=== PATIENT | female | born 1980 | race Two or more races ===

== ENCOUNTER 2022-01-19 13:19 | Outpatient (CLI) | payer BC, SELFPAY ==
[2022-01-19 15:29] LABS: Cholesterol* 252 mg/dL (90-199); HDL Cholesterol* 37 mg/dL (>=50); LDL Cholesterol Calculated 172 mg/dL (<100); Triglycerides* 213 mg/dL (40-149)
[2022-01-19 15:45] LABS: Free T4 Free Thyroxine* 0.96 ng/dL (0.70-1.85)
== END 2022-01-19 13:20 | disposition home or self-care (01) ==
PROVIDERS: Visit Provider Obstetrics & Gynecology
DX: Z01.419 Encounter for gynecological examination (general) (routine) without abnormal findings (principal); E03.9 Hypothyroidism, unspecified; E05.90 Thyrotoxicosis, unspecified without thyrotoxic crisis or storm
CPT/HCPCS: 80061; 84439; 84443

== ENCOUNTER 2022-02-05 14:59 | Outpatient (CLI) | payer BC, SELFPAY ==
--- NOTE | 2022-02-05 15:00 | CRLHL7_ITS ---
For Patients: As a result of the Century Cures Act, medical imaging exams and procedure reports are released immediately into your electronic medical record. You may view this report before your referring provider. If you have questions, please contact your health care provider. BILATERAL SCREENING MAMMOGRAM WITH COMPUTER-AIDED DETECTION AND TOMOSYNTHESIS TECHNIQUE: CC and MLO views were obtained. These mammographic images have been obtained using full-field digital technique. These mammographic images were interpreted with the benefit of computer-aided detection. Breast tomosynthesis was used in this interpretation. COMPARISON FILM: None. Baseline study. FINDINGS: The breasts are heterogeneously dense, which may obscure small masses. IMPRESSION: There is no radiographic evidence for malignancy. ASSESSMENT: BI-RADS Category 2: Benign RECOMMENDATION: Routine screening mammogram in 1 year. A lay language report of this examination will be provided to the patient. REJI GRANGER M.D. Diagnostic Radiologist [email or web address] ANTONINA/maria c Transcribed: 02/06/2022, 6:[address]/Dictated by: Reji Granger MD @ 02/06/2022 8:33:00 AM (Electronically Signed)
== END 2022-02-05 15:00 | disposition home or self-care (01) ==
LOC: MAMMO 15:00
PROVIDERS: Visit Provider Obstetrics & Gynecology
DX: Z12.31 Encounter for screening mammogram for malignant neoplasm of breast (principal); R92.2 Inconclusive mammogram
CPT/HCPCS: 77063; 77067

== ENCOUNTER 2024-03-10 07:57 | Outpatient (CLI) | payer BC, SELFPAY ==
--- NOTE | 2024-03-10 08:15 | CRLHL7_ITS ---
For Patients: As a result of the Century Cures Act, medical imaging exams and procedure reports are released immediately into your electronic medical record. You may view this report before your referring provider. If you have questions, please contact your health care provider. BILATERAL SCREENING MAMMOGRAM WITH COMPUTER-AIDED DETECTION AND TOMOSYNTHESIS TECHNIQUE: CC and MLO views were obtained. These mammographic images have been obtained using full-field digital technique. These mammographic images were interpreted with the benefit of computer-aided detection. Breast Tomosynthesis was used in this interpretation. COMPARISON FILM: 02/05/22. FINDINGS: The breasts are heterogeneously dense, which may obscure small masses. IMPRESSION: There is no radiographic evidence for malignancy. ASSESSMENT: BI-RADS Category 2: Benign RECOMMENDATION: Routine screening mammogram in 1 year. A lay language report of this examination will be provided to the patient. Reji Green M.D. Diagnostic Radiologist [email or web address] SP/Dictated by: Reji Green MD @ 03/10/2024 10:22:00 AM (Electronically Signed)
== END 2024-03-10 07:58 | disposition home or self-care (01) ==
LOC: MAMMO 07:58
PROVIDERS: Visit Provider Obstetrics & Gynecology
DX: Z12.31 Encounter for screening mammogram for malignant neoplasm of breast (principal); R92.333 Mammographic heterogeneous density, bilateral breasts
CPT/HCPCS: 77063; 77067

== ENCOUNTER 2024-03-24 13:06 | Outpatient (CLI) | payer BC, SELFPAY ==
[2024-03-31 18:40] LABS: HPV Source Cervix; HPV, High Risk by TMA Not Detected
== END 2024-03-24 13:07 | disposition home or self-care (01) ==
PROVIDERS: Visit Provider Obstetrics & Gynecology
DX: E78.00 Pure hypercholesterolemia, unspecified (principal); E03.8 Other specified hypothyroidism; Z12.4 Encounter for screening for malignant neoplasm of cervix; Z11.51 Encounter for screening for human papillomavirus (HPV)
CPT/HCPCS: 80061; 84443; 87624; 87625; 88141; 88142

== ENCOUNTER 2024-11-11 08:00 | Outpatient (RCR) | payer BC, SELFPAY | END 2025-01-27 10:04 | disposition home or self-care (01) | PROVIDERS: Visit Provider Nurse Practitioner Family | DX: M25.511 Pain in right shoulder (principal); M25.512 Pain in left shoulder; Z51.89 Encounter for other specified aftercare | CPT/HCPCS: 97110; 97161 ==

== ENCOUNTER 2025-02-03 07:28 | Outpatient (CLI) | payer BC, SELFPAY ==
--- NOTE | 2025-02-03 07:45 | CRLHL7_ITS ---
For Patients: As a result of the Century Cures Act, medical imaging exams and procedure reports are released immediately into your electronic medical record. You may view this report before your referring provider. If you have questions, please contact your health care provider. BILATERAL DIGITAL SCREENING MAMMOGRAM WITH COMPUTER-AIDED DETECTION AND TOMOSYNTHESIS CLINICAL HISTORY: Routine screening exam. COMPARISON: 03/10/2024, 02/05/2022. TECHNIQUE: Digital mammogram in CC and MLO projections including computer-aided detection (CAD). Tomosynthesis was used in this interpretation. BREAST COMPOSITION: There are scattered areas of fibroglandular density. FINDINGS: RIGHT Breast: Focal asymmetric density upper-outer quadrant. LEFT Breast: No suspicious findings. IMPRESSION: RIGHT breast asymmetry/mass. RECOMMENDATIONS: Additional mammographic views of the RIGHT breast including 3D spot-compression CC/MLO and 3D true lateral. RIGHT breast ultrasound may also be required. The [facility] will contact the patient. A lay language report of this examination will be provided to the patient. BI-RADS Category 0: Incomplete: Need Additional Imaging Evaluation Dictated by Reji Green MD @ 02/03/2025 12:07:26 PM patricia/Dictated by: Reji Green MD @ 02/03/2025 12:07:00 PM (Electronically Signed)
== END 2025-02-03 07:29 | disposition home or self-care (01) ==
LOC: MAMMO 07:29
PROVIDERS: Visit Provider Obstetrics & Gynecology
DX: Z12.31 Encounter for screening mammogram for malignant neoplasm of breast (principal); N63.10 Unspecified lump in the right breast, unspecified quadrant
CPT/HCPCS: 77063; 77067

== ENCOUNTER 2025-02-08 09:28 | Outpatient (CLI) | payer BC, SELFPAY ==
--- NOTE | 2025-02-08 09:45 | CRLHL7_ITS ---
For Patients: As a result of the Cures Act, medical imaging exams and procedure reports are released immediately into your electronic medical record. You may view this report before your referring provider. If you have questions, please contact your health care provider. RIGHT DIAGNOSTIC MAMMOGRAM WITH COMPUTER-AIDED DETECTION AND TOMOSYNTHESIS RIGHT BREAST ULTRASOUND CLINICAL HISTORY: RIGHT breast mass/asymmetry. COMPARISON: 02/03/2025, 03/10/2024, 02/05/2022. TECHNIQUE: Digital RIGHT mammogram in three projections. Computer-aided detection and tomosynthesis were used in this interpretation. Real-time ultrasound imaging of RIGHT breast with imaging documentation. BREAST COMPOSITION: There are scattered areas of fibroglandular density. FINDINGS: Additional mammogram images pf the RIGHT breast submitted. Decreased conspicuity of previously noted asymmetric density. No suspicious calcifications or architectural distortion. Targeted RIGHT breast ultrasound performed at 9 o`clock, 6 cm from the nipple. Normal fibroglandular tissue is present. No fibrocystic change. No solid mass. IMPRESSION: No evidence of malignancy. RECOMMENDATIONS: Routine screening mammography. A lay language report of this examination will be provided to the patient. BI-RADS Category 2: Benign. Dictated by Reji Green MD @ 02/08/2025 10:45:26 AM /sp SP/Dictated by: Reji Green MD @ 02/08/2025 10:45:00 AM (Electronically Signed)
--- NOTE | 2025-02-08 10:15 | CRLHL7_ITS ---
For Patients: As a result of the Century Cures Act, medical imaging exams and procedure reports are released immediately into your electronic medical record. You may view this report before your referring provider. If you have questions, please contact your health care provider. PLEASE SEE RIGHT BREAST DIAGNOSTIC MAMMOGRAM PERFORMED SAME DAY. CRL:sp SP/Dictated by: Reji Green MD @ 02/08/2025 12:05:00 PM (Electronically Signed)
== END 2025-02-08 09:29 | disposition home or self-care (01) ==
LOC: MAMMO 09:28
PROVIDERS: Visit Provider Obstetrics & Gynecology
DX: N63.10 Unspecified lump in the right breast, unspecified quadrant (principal); R92.8 Other abnormal and inconclusive findings on diagnostic imaging of breast
CPT/HCPCS: 76642; 77065; G0279